=== PATIENT | female | born 1985 | race Caucasian/White ===

== ENCOUNTER 2020-12-19 18:49 | Emergency (ER) | payer OTHER | END 2020-12-19 23:20 | disposition home or self-care (01) | LOC: ER1 18:49 | DX: M79.671 Pain in right foot (principal); Z88.6 Allergy status to analgesic agent; J45.909 Unspecified asthma, uncomplicated | CPT/HCPCS: 73630; 99283 ==

== ENCOUNTER 2021-04-04 15:47 | Emergency (ER) | payer OTHER ==
[2021-04-04 17:31] LABS: RED BLOOD COUNT 4.7 M/UL (4.00-5.10); WHITE BLOOD COUNT 7.7 K/UL (4.5-11.0)
[2021-04-04 17:53] LABS: BUN/CREATININE RATIO 18 (0-10)
[2021-04-04] MEDS ORDERED: KEPPRA 500 MG500 MG PO (21:19)
== END 2021-04-04 21:35 | disposition home or self-care (01) ==
LOC: ER1 15:47
PROVIDERS: Student in an Organized Health Care Education/Training Program
DX: R55 Syncope and collapse (principal); R56.9 Unspecified convulsions; J45.909 Unspecified asthma, uncomplicated; Z79.82 Long term (current) use of aspirin
CPT/HCPCS: 70450; 71045; 80053; 82550; 82553; 82962; 83605; 83874; 84484; 84703; 85025; 93005; 96374; 99284; J1953

== ENCOUNTER 2021-11-29 19:29 | Emergency (ER) | payer OTHER ==
[~2021-11-29 19:29] MED LIST: KEPPRA 500 MG500 MG PO
[2021-11-29 20:26] LABS: HEMOGLOBIN 14.9 gm/dl (12.3-15.3); RED BLOOD COUNT 4.66 M/UL (4.00-5.10); WHITE BLOOD COUNT 7.7 K/UL (4.5-11.0)
[2021-11-29 20:42] LABS: BUN/CREATININE RATIO 17 (0-10)
[2021-11-29] MEDS ORDERED: AEROCHAMBER1 EA XX (21:50)
[2021-11-29] MEDS ORDERED: PROVENTIL HFA6.7 GM INH (21:50)
[2021-11-29] MEDS ORDERED: PREDNISONE20 MG PO (21:50)
== END 2021-11-29 22:19 | disposition home or self-care (01) ==
LOC: ER1 19:29
PROVIDERS: Family Medicine
DX: J45.901 Unspecified asthma with (acute) exacerbation (principal); Z20.822 Contact with and (suspected) exposure to COVID-19
CPT/HCPCS: 0240U; 36600; 71045; 80048; 82550; 82553; 82803; 83880; 84484; 85025; 93005; 94664; 96374; 99285; J2930